=== PATIENT | female | born 1980 | race Caucasian/White ===

== ENCOUNTER 2025-07-24 03:15 | Day surgery (SDC) | payer BC, SELFPAY ==
--- OUTSIDE RECORDS SUMMARY | 2024-11-15 03:10 | XMS_ITS ---
Author Organization [facility] Address [address] [place], [place] [id number] Care Team Providers Care Bridge Painter Helper Name Role Phone YUE SMART Unavailable [phone] Answer, Declined Unavailable Unavailable Allergies Allergen (clinical drug ingredient) Drug/Non Drug Allergy documented on EMR Reaction Allergy Type Onset Date Status ibuprofen Advil Unknown Drug Allergy Active Motrin Unknown Drug Allergy Active Latex Latex Unknown Allergy Active REASON FOR VISIT *Fracture check Medications Medication SIG (Take, Route, Frequency, Duration) Notes Start Date End Date Status Testosterone 25 MG/2.5GM (1%) Gel 2 packets to skin in the morning to shoulder, upper arms or abdomen Transdermal Once a day Active Progesterone 50 MG/ML Oil as directed Intramuscular Active Calcium 500-2.5 MG-MCG Tablet Chewable 1 tablet with a meal Orally Once a day Active Multivitamin & Mineral Active Vital Signs Height 71 in 11/15/2024 Weight 208 lbs 11/15/2024 BMI 29.01 kg/m2 11/15/2024 Height-cm 180.34 cm 11/15/2024 Weight-kg 94.35 kg 11/15/2024 Encounters Encounter Location Date Provider Diagnosis [facility] [address] [place], [place] [id number] 11/15/2024 YUE SMART Nondisplaced fracture of fifth metatarsal bone, right foot, subsequent encounter for fracture with routine healing S92.354D ; Sprain of other ligament of right ankle, subsequent encounter S93.491D and Right foot pain M79.671 Assessments Encounter Date Diagnosis (ICD Code) Assessment Notes Treatment Notes Treatment Clinical Notes Section Notes 11/15/2024 Nondisplaced fracture of fifth metatarsal bone, right foot, subsequent encounter for fracture with routine healing (ICD-10 - S92.354D) 11/15/2024 Sprain of other ligament of right ankle, subsequent encounter (ICD-10 - S93.491D) 11/15/2024 Right foot pain (ICD-10 - M79.671) 11/15/2024 Other She states that she has not been wearing the cam walker. I stressed that it should be worn at all times. Plan Of Treatment Treatment Notes Assessment Notes Other She states that she has not been wearing the cam walker. I stressed that it should be worn at all times. History and Physical Notes * HPI (History of Present Illness) Category Sub-Category Detail Notes Category Not es HPI Follow Up Visit Patient presents for follow up visit for a fracture in the right foot. , Patient states their problem is, improving, however it is still sore at times. MA: TERER Examination Category Sub-Category Detail Notes Category Not es X-Ray LEFT FOOT Studies from out side facility reviewed: Fracture noted at the 5th metatarsal base. The fracture is non-displaced Constitutional Constitutional The patient is a wake, alert, well developed, well groomed and well nourished. Dermatologic Skin findings: Skin is warm, dr y, supple with no breaks in the skin. Nail pathology: Nails 1-5 bilateral are normal in appearance and thickness. No discoloration. Ulcer: There is no evidence of ulceration noted at this time Hyperkeratotic Skin Lesion There is no e vidence of hyperkeratosis Musculoskeletal Muscle Strength Muscle strength is 5/5 in regards to dorsiflexion, plantarflexion, inversion, and eversion in bilateral lower extremities. Pain on palpation 5th metatarsal left Foot Structure The foot structure i s noted to be normal bilaterally Gait There is normal gait noted Neurologic Muscle power: 5/5 bilaterally Gross sensation Gross sensation is i ntact to light touch. Vascular Dorsalis pedis pulse: 2/4 bilateral Posterior tibial pulse: 2/4 bilaterally Capillary refill: less than 3 seconds bilaterally Temperature gradient: within normal limi ts Progress Notes * Kate ANSARIOB:1980 (44 yo F)Acc No.[id number]:11/15/2024 Patient: Jessica Tate Provider: Vicenta Smart DPM :1980 A ge:44 Y S ex:Female Date:11/15/2024 Address:[address] [place], [place] [id number] Subjective: * Chief Complaints: * * Fracture check * HPI: H [facility]: [facility] a fracture in the right foot. , Patient states their problem is, improving, however it is still sore at times. M A: TERER. * Medical History: Leg/Feet cramps Psychiatric Disorder Medical History Verified * Surgical History: Abdominoplasty 10/2023 VSG 09/2021 Surgical History verified. * Hospitalization/Major Diagno stic Procedure: No Hospitalization Documented. Hospitalization Verified. * Family History: N o Family History documented.. F amily History Verified.. * Social History: Social History Verified. No Social History documented. * Medications: T akingProgesterone 50 MG/ML Oil as directed Intramuscular Testosterone 25 MG/2.5GM (1%) Gel 2 packets to skin in the morning to shoulder, upper arms or abdomen Transdermal Once a day Multivitamin & Mineral Calcium 500-2.5 MG-MCG Tablet Chewable 1 tablet with a meal Orally Once a day Medication List reviewed and reconciled with the patientTaking Progesterone 50 MG/ML Oil as directed Intramuscular Taking Testosterone 25 MG/2.5GM (1%) Gel 2 packets to skin in the morning to shoulder, upper arms or abdomen Transdermal Once a day Taking Multivitamin & Mineral Taking Calcium 500-2.5 MG-MCG Tablet Chewable 1 tablet with a meal Orally Once a day Medication List reviewed and reconciled with the patient * Allergies: L atexAdvilMotrinyesAllergies Verified. Objective: * Vitals: W t:208lbs, Wt-k.35 kg, Ht: 71 in, Ht-cm: 180.34 cm, BMI:29.01Index, Body Surface Area: 2.17. * Examination: C onstitutional: Constitutional T he patient is awake, alert, well developed, well groomed and well nourished. . D ermatologic: Skin findings: S kin is warm, dry, supple with no breaks in the skin. . Nail pathology: N ails 1-5 bilateral are normal in appearance and thickness. No discoloration. . Ulcer: T here is no evidence of ulceration noted at this time . Hyperkeratotic Skin Lesion T here is no evidence of hyperkeratosis . M usculoskeletal: Muscle Strength M uscle strength is 5/5 in regards to dorsiflexion, plantarflexion, inversion, and eversion in bilateral lower extremities. . Foot Structure T he foot structure is noted to be normal bilaterally . Pain on palpation 5 th metatarsal left. Gait T here is normal gait noted . N eurologic: Muscle power: 5 /5 bilaterally . Gross sensation G ross sensation is intact to light touch. . V ascular: Dorsalis pedis pulse: 2 /4 bilateral . Posterior tibial pulse: 2 /4 bilaterally . Capillary refill: l ess than 3 seconds bilaterally . Temperature gradient: w ithin normal limits . ? X -Ray: LEFT FOOT S tudies from outside facility reviewed: Fracture noted at the 5th metatarsal base. The fracture is non-displaced . Assessment: * Assessment: 1. N ondisplaced fracture of fifth metatarsal bone, right foot, subsequent encounter for fracture with routine healing - S92.354D (Primary) 2 . S prain of other ligament of right ankle, subsequent encounter - S93.491D 3 . R ight foot pain - M79.671 & #160; Plan: * Treatment: * Immunizations: Immunization record has been reviewed and updated. * Procedure Codes: 7 3630 X-RAY EXAM OF FOOT, Modifiers: RT Billing Information: * Visit Code: 76042 Office Visit, Est Pt., Level 3. * Procedure Codes: 49542 X-RAY EXAM OF FOOT. Modifiers: RT * Electronic signature of YUE SMART DPM on 07/24/2025 at 03:19 AM LABORER TREE TAPPING Sign off status: Pending * Provider: Vicenta Smart DPM Date: 0 11/15/2024 Generated for Yancy guthrie/Sayra/Sashaitting on: 09/24/2024 03:19 AM LABORER TREE TAPPING
--- OUTSIDE RECORDS SUMMARY | 2024-12-19 03:40 | XMS_ITS ---
Author Organization [facility] Address [address] [place], [place] [id number] Care Team Providers Care Dress Finisher Name Role Phone YUE SMART Unavailable [phone] Answer, Declined Unavailable Unavailable REASON FOR VISIT *Fracture check W/XRAYS Encounters Encounter Location Date Provider Diagnosis [facility] [address] [place], [place] [id number] 12/19/2024 YUE SMART Plan Of Treatment No Information Progress Notes * Kate PEREZOB:1980 (44 yo F)Acc No.[id number]:12/19/2024 Patient: Jessica Tate Provider: Vicenta Smart DPM :1980 A ge:44 Y S ex:Female Date:12/19/2024 Address:[address], [id number] Subjective: * Chief Complaints: * * Fracture check W/XRAYS Billing Information: * Procedure Codes: * Electronic signature of YUE SMART DPM on 07/24/2025 at 03:19 AM NAVAL AIRCREW[employer] MECHANICAL Sign off status: Pending * Provider: Vicenta Smart DPM Date: 0 12/19/2024 Generated for Printi ng/Faxing/eTransmitting on: 1 09/24/2024 03:19 AM [employer]
[2025-07-06 08:45] VITALS: BMI 32.3
--- OUTSIDE RECORDS SUMMARY | 2025-07-24 03:19 | XMS_ITS | Clinical Summary ---
Author Organization [facility] Address [address] [place] [address] Care Team Providers Care Stain Remover Name Role Phone Vikas Moeller MD Primary Care Provider [phone] Vikas Moeller MD Unavailable [phone] Source Comments [facility],non-owned Affiliates and Associated Physician Practices is amultiple site organization consisting of ambulatory clinics and hospital sitesin [place], [place], [place] and [place]. This disclosure is being madepursuant to the Care Everywhere program and may not contain all information available regarding this patient. Last updated 18.[facility] Allergies No known active allergies Medications * Be aware that medications may not be up to date on this document. Alwaysverify current medications with the patient. clonazePAM (KLONOPIN) 2 MG tablet Take 4 mg by mouth Active sertraline (ZOLOFT) 100 MG tablet 200 mg 04/10/2016 Active sertraline (ZOLOFT) 50 MG tablet Take 50 mg by mouth once daily 09/20/2020 Active Active Problems No known active problems Immunizations Immunization Administration Dates Next Due HEP A VACCINE, ADULT 06/04/2017 Social History Tobacco Use Types Packs/Day Years Used Date Smoking Tobacco: Former Cigarettes 0 Q uit: 05/07/2012 Smokeless Tobacco: Never Alcohol Use Standard Drinks/Week Comments No 0 (1 standard drink = 0.6 oz pur e alcohol) Comments No Sex and Gender Information Value Date Recorded Sex Assigned at Not on file Legal Sex Female 7:16 PM CDT Gender Identity Not on file Sexual Orientation Not on file Last Filed Vital Signs Vital Sign Reading Time Taken Comments Blood Pressure 139/70 11/09/2020 6:55 PM CDT Pulse 98 11/09/2020 6:55 PM CDT Temperature 36.2 C (97.2 F) 11/09/2020 6:55 PM CDT Respiratory Rate 20 11/09/2020 6:55 PM CDT Oxygen Saturation 98% 11/09/2020 6:55 PM CDT Inhaled Oxygen Concentration - - Weight 158.8 kg (350 lb) 11/09/2020 6:55 PM CDT Height 182.9 cm (6') 11/09/2020 6:55 PM CDT Body Mass Index 47.47 11/09/2020 6:55 PM CDT Plan of Treatment Health Maintenance Due Date Last Done Comments COLOGUARD (AGES 45-75) - COL ON CA SCREENING 1978 COLON MONITORING 1978 COLONOSCOPY - COLON CA SCREENING 1978 CT COLONOGRAPHY - COLON CA SCREENING 1978 Colorectal Cancer Screening 1978 FIT - COLON CA SCREENING 1978 FLEX SIG - COLON CA SCREENING 1978 LIPID TESTING 1980 MAMMOGRAM 1978 HIV SCREENING 1993 HEPATITIS C SCREENING 10/09/1996 DTAP/TDAP/TD VACCINES (1 - Tdap) 1997 HEPATITIS B VACCINE (1 of 3 - 19+ 3-dose series) 1997 HEPATITIS A VACCINE (2 of 2 - Risk 2-dose series) 12/02/2017 06/04/2017 SCREENING FOR DIABETES 10/12/2020 DEPRESSION SCREENING 08/03/2024 COVID-19 VACCINE (1 - 2024-2 6 season) 2025 INFLUENZA VACCINE (#1) 2025 ZOSTER VACCINE (1 of 2) 2028 HIB VACCINE Aged Out No longer eligi ble based on patient's age to complete this topic HPV VACCINE Aged Out No longer eligi ble based on patient's age to complete this topic MENINGOCOCCAL (Group B) VACC INE SHARED DECISION-MAKING Aged Out No longer eligibl e based on patient's age to complete this topic MENINGOCOCCAL GROUPS A/C/Y/W VACCINE Aged Out No longer eligible b ased on patient's age to complete this topic PNEUMOCOCCAL VACCINE Aged Out No long er eligible based on patient's age to complete this topic Insurance ANTHEM ANTHEM ANTHEM Care Teams Stain Remover Relationship Specialty Start Date End Date Vikas Moeller MD PCP - General 12/19/20 Vikas Moeller MD 12/19/20
--- OUTSIDE RECORDS SUMMARY | 2025-07-24 03:19 | XMS_ITS | Patient Health Record ---
Author Organization [facility] Address [address] [place], [place] [id number] Care Team Providers Care Hardener Helper Name Role Phone YUE AUSTIN Unavailable [phone] Answer, Declined Unavailable Unavailable Allergies Allergen (clinical drug ingredient) Drug/Non Drug Allergy documented on EMR Reaction Allergy Type Onset Date Status ibuprofen Advil Unknown Drug Allergy Active Motrin Unknown Drug Allergy Active Latex Latex Unknown Allergy Active Reason For Referral No Information Medications Medication SIG (Take, Route, Frequency, Duration) Notes Start Date End Date Status Testosterone 25 MG/2.5GM (1%) Gel 2 packets to skin in the morning to shoulder, upper arms or abdomen Transdermal Once a day Active Progesterone 50 MG/ML Oil as directed Intramuscular Active Calcium 500-2.5 MG-MCG Tablet Chewable 1 tablet with a meal Orally Once a day Active Multivitamin & Mineral Active Social History Tobacco Use: Social History Observation Description Date Details (start date - stop date) Former Smoker NA - 11/01/2019 Social History Tobacco Use: Social Info Question Answer Notes Tobacco Control (Standard) Tobacco use: Former smoker When did you stop smoking? 11/01/2019 Additional Details Category Social Info Options Details Drugs/Alcohol: Do you drink alcohol? No Vital Signs Height-cm 180.34 cm 11/15/2024 Weight-kg 94.35 kg 11/15/2024 Height 71 in 11/15/2024 Weight 208 lbs 11/15/2024 BMI 29.01 kg/m2 11/15/2024 Encounters Encounter Location Date Provider Diagnosis [facility] [address] [place], [place] [id number] 11/15/2024 YUE AUSTIN Nondisplaced fracture of fifth metatarsal bone, right foot, subsequent encounter for fracture with routine healing S92.354D ; Sprain of other ligament of right ankle, subsequent encounter S93.491D and Right foot pain M79.671 [facility] [address] [place], [place] [id number] 10/11/2024 YUE AUSTIN Nondisplaced fracture of fifth metatarsal bone, right foot, initial encounter for closed fracture S92.354A ; Sprain of anterior talofibular ligament of right ankle, initial encounter S93.491A and Right foot pain M79.671 Assessments Encounter Date Diagnosis (ICD Code) Assessment Notes Treatment Notes Treatment Clinical Notes Section Notes 10/11/2024 Sprain of anterior talofibular ligament of right ankle, initial encounter (ICD-10 - S93.491A) 11/15/2024 Nondisplaced fracture of fifth metatarsal bone, right foot, subsequent encounter for fracture with routine healing (ICD-10 - S92.354D) 11/15/2024 Sprain of other ligament of right ankle, subsequent encounter (ICD-10 - S93.491D) 10/11/2024 Nondisplaced fracture of fifth metatarsal bone, right foot, initial encounter for closed fracture (ICD-10 - S92.354A) 10/11/2024 Right foot pain (ICD-10 - M79.671) 11/15/2024 Right foot pain (ICD-10 - M79.671) 11/15/2024 Other She states that she has not been wearing the cam walker. I stressed that it should be worn at all times. 10/11/2024 Other Dispense: A cam walker was fitted and dispensed. The patient was instructed in its use. Plan Of Treatment No Information Insurance Providers Payer Name Payer Address Payer Phone Subscriber Number Group Number Insured Name Patient Relationship to Insured Coverage Start Date Coverage End Date [facility] ([facility] ATTN CLAIMS [address] [place] [address] [id number] Jessica Ansari Self - patient is the insured Medical (General) History Medical History History ICD Code Leg/Feet cramps Psychiatric Disorder Surgical History Surgery Date(Month/Year) Abdominoplasty 10/2023 VSG 09/2021
[2025-07-24 09:07] VITALS: BP 127/63; PULSE 82; RESP 18; TEMP 36.6; O2SAT 98; BMI 33.0
[2025-07-24] MEDS: LACTATED RINGERS 1,000 ML 150 ML IV CONT ×2 (09:30→10:45)
--- NOTE | 2025-07-24 10:24 | WPDANESEPPF ---
Anes - Initial Pre Proc Eval Procedure: Operation Date: 07/24/25 10:30 Proposed Procedures p Screening Colonoscopy - Demetrius Hall MD Date/Time: 07/24/25 10:24 Surgeon: Demetrius Hall MD Pre Op Diagnosis: Encounter for screening for malignant neoplasm of Patient Data Age: 44 Gender: F Height: 1.8 m Weight: 107.4 kg Last Vital Signs Temp 36.6 C 07/24/25 09:07 Pulse 82 07/24/25 09:07 Resp 18 07/24/25 09:07 BP 127/63 07/24/25 09:07 Pulse Ox 98 07/24/25 09:07 O2 Del Method Room Air 07/24/25 09:07 Allergies Allergy/AdvReac Type Severity Reaction Status Date / Time No Known Allergies Allergy Verified 07/24/25 09:02 Home Medications ?Medication ?Instructions ?Recorded ?Confirmed ?Type clonazepam 1 mg tablet (Klonopin) 1 - 2 mg PO HS 07/06/25 07/24/25 History multivitamin 1 tablet PO DAILY 07/06/25 07/24/25 History progesterone micronized 200 mg 200 mg PO QPM 07/06/25 07/24/25 History capsule sertraline 100 mg tablet 200 mg PO DAILY 07/06/25 07/24/25 History Patient hx anesthesia problems: none Family hx anesthesia problems: none Results Review: All pre-operative results and documents have been reviewed as part of the pre-operative evaluation. [facility] Social History Social History Years smoked: 20 Smoking status: Former smoker Tobacco type: cigarettes and e-cigarettes/vaping Additional smoking assessment comments: Quit vaping 2020 Living arrangements: with family Spiritual care concerns: No Anes - Eval Final PreProcedure Day of Procedure 07/24/25 10:24 Patient weight: obese Heart: regular rate and rhythm Lungs: clear to auscultation Airway: Mallampati scale class 1 Neurological: alert and oriented Last oral intake: >/= 8 hours ASA classification: III Emergent: no Anesthetic plan: proceed Anesthesia type and monitoring: general GIVS and standard monitoring Results Review: All pre-operative results and documents have been reviewed as part of the pre-operative evaluation. Informed Consent: The patient's anesthetic plan and its attendant risks and benefits were discussed with the patient/family/POA. Questions were solicited and answers provided to the satisfaction of the patient/family/POA.
--- NOTE | 2025-07-24 10:27 | PM.HPGS ---
History of Present Illness History of Present Illness Consent: Risks, benefits, and alternatives have been discussed and questions answered. Patient agrees to proceed with procedure. Chief complaint: Encounter for screening for malignant neoplasm of Narrative: Jessica Ansari is a 44 year old female here for first screening colonoscopy Review of Systems Review of Systems: All systems reviewed & are unremarkable except as noted in HPI and below PMFSH Past Medical History Medical History (Updated 07/24/25 @ 10:28 by Demetrius Hall MD) Colon cancer screening Social History Social History Years smoked: 20 Smoking status: Former smoker Tobacco type: cigarettes and e-cigarettes/vaping Additional smoking assessment comments: Quit vaping 2020 Living arrangements: with family Spiritual care concerns: No Meds Home Medications and Allergies Home Medications ?Medication ?Instructions ?Recorded ?Confirmed ?Type clonazepam 1 mg tablet (Klonopin) 1 - 2 mg PO HS 07/06/25 07/24/25 History multivitamin 1 tablet PO DAILY 07/06/25 07/24/25 History progesterone micronized 200 mg 200 mg PO QPM 07/06/25 07/24/25 History capsule sertraline 100 mg tablet 200 mg PO DAILY 07/06/25 07/24/25 History Allergies Allergy/AdvReac Type Severity Reaction Status Date / Time No Known Allergies Allergy Verified 07/24/25 09:02 Vital Signs Vital Signs - 24 hr 07/24/25 09:07 Temperature 98 F Pulse Rate 82 Respiratory Rate 18 Blood Pressure 127/63 Pulse Oximetry 98 Oxygen Delivery Room Air Exam Const: General: comfortable and no acute distress HENMT: Face/Nose/Sinus: Normal nares present Eyes: General: appearance normal, both eyes and all related structures Neck: Neck: no JVD Resp: Auscultation: clear to auscultation bilaterally Cardio: Rate: regular rate Rhythm: regular rhythm GI: Inspection: non-distended GI Palp: Yes Soft to palpation Skin: General skin exam: normal color Extrem: General: normal to inspection Psych: Mental Status: mental status grossly normal Assessment and Plan Assessment and plan (1) Colon cancer screening: Code(s): Z12.11 - Encounter for screening for malignant neoplasm of colon Status: Acute Assessment and Plan: colonoscopy
[2025-07-24 10:46] VITALS: BP 92/50; PULSE 80; RESP 18; O2SAT 97
[2025-07-24 10:56] VITALS: BP 115/55; PULSE 61; RESP 23; O2SAT 100
[2025-07-24 11:03] VITALS: BP 118/55; PULSE 56; RESP 15; O2SAT 100
== END 2025-07-24 11:24 | disposition home or self-care (01) ==
PROVIDERS: PCP Family Medicine; Referring Provider Family Medicine; Visit Provider Internal Medicine Gastroenterology
PROC: 0DJD8ZZ Inspection of Lower Intestinal Tract, Via Natural or Artificial Opening Endoscopic (ICD-10-PCS; CPT 45378; principal; 2025-07-24 10:30)
DX: Z12.11 Encounter for screening for malignant neoplasm of colon (principal); K64.8 Other hemorrhoids; Z87.891 Personal history of nicotine dependence
CPT/HCPCS: 45378; J2704; J7120